=== PATIENT | female | born 1940 | race Caucasian/White ===

== ENCOUNTER 2017-08-06 10:33 | Emergency (ER) | payer MEDICARE, MEDICAID ==
[~2017-08-06] VITALS: Ht 170.2 cm; Wt 68.0 kg
[2017-08-06 10:39] VITALS: BP 141/64
[2017-08-06] MEDS ORDERED: Ciprofloxacin 500mg tab ORAL ONE (10:45)
--- NOTE | 2017-08-06 10:45 | Emergency Room Report ---
History of Present Illness General Chief Complaint: To Be Triaged Source: Patient Present Illness HPI Patient presents with right ear pain. This began last night. She also has some decrease in hearing there. The pain is 7/10 and constant. She did not take any medication for this. Denies any upper respiratory symptoms, chest pain , nausea, vomiting diarrhea or rashes. There is no drainage from the ear. Some anxiety as she lives by self and had difficulty coming to ED. Gastritis in past. HTN, hyperlipidemia. Denies DM. Allergies: Coded Allergies: ASPIRIN (Verified Allergy, Unknown, 02/08/15) ATENOLOL (Verified Allergy, Unknown, 02/08/15) Uncoded Allergies: ANTIHYPERTENSIVE MEDICATIONS (Allergy, Unknown, 02/08/15) unable to recall Patient History Past Medical History: see triage record Social History: Denies: smoking Social History Narrative she lives by herself Reviewed Nursing Documentation: PMH: Agreed, PSxH: Agreed Nursing Documentation-PMH Hx Cardiac Problems: Yes - hyperlipidemia, hypothyroidism Hx Hypertension: Yes Hx Gastrointestinal Problems: Yes Review of Systems All Other Systems: negative except mentioned in HPI Physical Exam Vital Signs Date Time Temp Pulse Resp B/P (MAP) Pulse Ox O2 Delivery O2 Flow Rate FiO2 08/06/17 10:39 98.0 68 18 141/64 95 Room Air 98.0 Sp02 EP Interpretation: reviewed, normal General Appearance: well appearing, no apparent distress, alert Head: normocephalic, atraumatic Eyes: bilateral eye normal inspection, bilateral eye PERRL ENT: moist mucus membranes, other - TM R with opacity, canal with some swelling , min pinna tend Neck: supple/symm/no masses Respiratory: no respiratory distress, speaking full sentences Cardiovascular #1: regular rate, rhythm Gastrointestinal: normal bowel sounds, non tender Musculoskeletal: digits/nails normal, gait/station normal, normal range of motion Neurologic: alert, normal gait, grossly normal Psychiatric: mood/affect normal, anxious Skin: no rash Medical Decision Making Diagnostic Impression: Primary Impression: Right otitis media Qualified Codes: H66.001 - Acute suppurative otitis media without spontaneous rupture of ear drum, right ear ER Course Patient with R ear pain. DDx: OM, OE, Mnire's amongst others. Clinically, some OM and OE. Indications for treatment with antibiotics and also analgesia. She has a non-focal neurologic exam. Patient wanted ear drops, but not have specific meds available in ED. Improved. Patient stable for outpatient observation and treatment. Last Vital Signs Date Time Temp Pulse Resp B/P (MAP) Pulse Ox O2 Delivery O2 Flow Rate FiO2 08/06/17 11:11 98.3 70 16 138/71 96 Room Air 98.0 Status: improved Disposition: HOME, SELF-CARE Condition: Improved Scripts Acetaminophen (Tylenol) 325 Mg Tablet 650 MG ORAL Q6H Y for Prn Pain/Headache/Temp > 101, #20 TAB 0 Refills Prov: Uri Galloway M.D. 08/06/17 Ciprofloxacin Hcl/Dexameth (CIPRODEX OTIC SUSPENSION) 7.5 Ml Drops.susp 4 DROP BOTH EARS TWICE A DAY for 7 Days, ML Prov: Uri Glaloway M.D. 08/06/17 Ciprofloxacin Hcl* (CIPROFLOXACIN HCL*) 500 Mg Tablet 500 MG ORAL Q12H, #14 TAB 0 Refills Prov: Uri Galloway M.D. 08/06/17 rUi Galloway M.D. Aug 06, 2017 10:45
[2017-08-06] MEDS ORDERED: CIPROFLOXACIN500 M2 ORAL (11:02)
[2017-08-06] MEDS ORDERED: TYLENOL325 MG ORAL (11:02)
[2017-08-06] MEDS ORDERED: CIPRODEX OTIC7.5 M1 BOTH EARS (11:02)
== END 2017-08-06 11:11 | disposition home or self-care (01) ==
LOC: EMR 10:45
DX: H66.91 Otitis media, unspecified, right ear (principal); I10 Essential (primary) hypertension; Z88.6 Allergy status to analgesic agent; Z88.8 Allergy status to other drugs, medicaments and biological substances
CPT/HCPCS: 99284